=== PATIENT | female | born 1965 | race Caucasian/White ===

== ENCOUNTER 2021-03-06 09:38 | Emergency (ER) | payer OTHER ==
[2021-03-06 10:34] LABS: HEMOGLOBIN 14.4 gm/dl (12.3-15.3); RED BLOOD COUNT 5.05 M/UL (4.00-5.10); WHITE BLOOD COUNT 3.9 K/UL (4.5-11.0)
[2021-03-06 10:52] LABS: BUN/CREATININE RATIO 17 (0-10)
== END 2021-03-06 11:40 | disposition home or self-care (01) ==
LOC: ER1 09:38
PROVIDERS: Physician Assistant
DX: R07.9 Chest pain, unspecified (principal); M79.662 Pain in left lower leg; K21.9 Gastro-esophageal reflux disease without esophagitis; Z88.0 Allergy status to penicillin
CPT/HCPCS: 71045; 80053; 82550; 82553; 83874; 84484; 85025; 85379; 93005; 99285